=== PATIENT | male | born 1950 | race Caucasian/White ===

== ENCOUNTER 2018-02-19 10:39 | Emergency (ER) | payer OTHER ==
[2018-02-19 10:47] VITALS: BP 125/72
--- NOTE | 2018-02-19 11:08 | EDPHY ---
H & P Time Seen by Provider: 02/19/18 10:54 HPI/ROS: CHIEF COMPLAINT: Bleeding from the left ear HISTORY OF PRESENT ILLNESS: Patient flew out here from [place] to visit his daughter who lives locally. He did not have pre-existing upper respiratory infection or head cold symptoms or congestion. On the flight to [place] he developed left ear pain and then some drainage from that ear that night. He wears hearing aids, but thinks there is some decrease in hearing on the left side. Continues to have intermittent bloody drainage. REVIEW OF SYSTEMS: No water exposure. No fever or chills. PAST MEDICAL HISTORY: Coronary disease with stenting Social history: Lives in [place] General Appearance: Alert and conversant, cooperative. Normal right tympanic membrane and ear canal. Left ear canal has blood clot and debris, tympanic membrane mostly obscured. He is alert and ambulatory, does not have vertigo. Emergency Department course/MDM: Likely acutely ruptured tympanic membrane from 3 days ago. ENT consultation; Fallon Power 11:11am, she requests that I send the patient to follow-up in her office today at 2:45 p.m. Patient warned to keep his ear canal dry. Smoking Status: Never smoked Constitutional: Initial Vital Signs Temperature (C) 36.7 C 02/19/18 10:45 Heart Rate 60 02/19/18 10:45 Respiratory Rate 16 02/19/18 10:45 Blood Pressure 125/72 H 02/19/18 10:45 O2 Sat (%) 96 02/19/18 10:45 O2 Delivery Mode Room Air Allergies/Adverse Reactions: No Known Allergies Allergy (Unverified 02/19/18 10:47) Home Medications: Medication Instructions Recorded Atenolol 02/19/18 Lipitor 02/19/18 MDM/Departure - Depart Disposition: Home, Routine, Self-Care Clinical Impression: Tympanic membrane rupture Qualifiers: Laterality: left Qualified Code(s): H72.92 - Unspecified perforation of tympanic membrane, left ear Condition: Good Instructions: Ruptured Eardrum (ED) Additional Instructions: Keep ear dry. See ENT clinic today at 245pm. Referrals: Vishal Felix MD [Medical Doctor] - As per Instructions Fallon Power, PAC [Physician Senior Database Engineer] - As per Instructions (go to ENT clinic today at 245pm )
== END 2018-02-19 11:18 | disposition home or self-care (01) ==
DX: H72.92 Unspecified perforation of tympanic membrane, left ear (principal)